=== PATIENT | male | born 1995 | race Caucasian/White ===

== ENCOUNTER 2019-09-16 16:57 | Emergency (ER) | payer MEDICAID ==
[~2019-09-16] VITALS: Ht 165.1 cm; Wt 78.5 kg
[2019-09-16 17:10] VITALS: BP 150/71
--- NOTE | 2019-09-16 17:31 | NUR ---
23 Y/O MALE PRESENTS TO THE ER WITH COUGHING, BODY ACHES, CHILLS, NAUSEA, HEADACHES X 3 DAYS. PAIN 10/10 DENIES SNEEZING, RUNNY NOSE, VOMITING, DIARRHEA, MUCOUS. R/R EQUAL, AND UNLABORED. WILL CONTINUE TO MONITOR, SIDERAIL X1 BED IN LOW POSITION. NKDA NO PMH
--- NOTE | 2019-09-16 17:33 | NUR ---
Monroe barth in [facility] - 09/16/19 at 1744 by [facility] PT TO ER BED 9
[2019-09-16] MEDS ORDERED: NACL 0.9% 1,000 ML IV ONE (17:40)
[2019-09-16] MEDS ORDERED: KETOROLAC 30 MG/ML VIAL IVP ONE (17:40)
--- NOTE | 2019-09-16 17:44 | NUR ---
Monroe barth in [facility] - 09/16/19 at 1744 by [facility] PT TO ER BED 12
--- NOTE | 2019-09-16 19:16 | NUR ---
REPORT GIVEN TO JACINTO NGUYEN. TRANSFER OF CARE AT THIS TIME. PT STABLE
--- NOTE | 2019-09-16 19:16 | NUR ---
RECIEVED REPORT FROM AUBREE CASEY. PATIENT SITTING IN BED, NO NEEDS STATED A THIS TIME.
--- NOTE | 2019-09-16 19:20 | NUR ---
PATIENT STATES HE IS FEELING MUCH BETTER. EVELYNED MADE AWARE.
[2019-09-16 19:34] VITALS: BP 135/72
--- NOTE | 2019-09-16 19:35 | NUR ---
Patient discharged with v/s stable. Written and verbal after care instructions given and explained. Patient verbalized understanding. Ambulatory with steady gait. All questions addressed prior to discharge. Advised to follow up with PMD.
== END 2019-09-16 19:35 | disposition home or self-care (01) ==
LOC: MED 16:57
DX: B34.9 Viral infection, unspecified (principal)
CPT/HCPCS: 96374; 99283; J1885; J7030

== ENCOUNTER 2022-10-14 16:11 | Emergency (ER) | payer SELFPAY ==
[~2022-10-14] VITALS: Ht 165.1 cm; Wt 67.6 kg
[2022-10-14 16:44] VITALS: BP 139/74
[2022-10-14] MEDS ORDERED: FLUORESCEIN OPTH STRIP 1 MG OP ONE (16:55)
[2022-10-14] MEDS ORDERED: TETRACAINE HCL/PF 0.5% OPTH 4 ML BTL OP ONE (16:55)
--- NOTE | 2022-10-14 17:29 | NUR ---
AMBULATES WITH STEADY GAIT, C/O EYE PAIN, ABLE TO SEE
[2022-10-14] MEDS ORDERED: ACET-1194 PO (17:41)
[2022-10-14] MEDS ORDERED: OFLO10SO2 OP (17:41)
== END 2022-10-14 18:48 | disposition home or self-care (01) ==
LOC: MED 16:11
DX: S00.252A Superficial foreign body of left eyelid and periocular area, initial encounter (principal); X58.XXXA Exposure to other specified factors, initial encounter; Y93.89 Activity, other specified; Y92.89 Other specified places as the place of occurrence of the external cause; Y99.8 Other external cause status
CPT/HCPCS: 99283